=== PATIENT | female | born 1960 | race Caucasian/White ===

== ENCOUNTER 2016-09-16 23:56 | Emergency (ER) | payer OTHER ==
[~2016-09-16] VITALS: Ht 157.5 cm; Wt 49.9 kg
--- NOTE | 2016-09-17 01:35 | NUR ---
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 NO SOB NOTED. NAD NOTED. NO NVD AT THIS TIME. PT GOWNED AND PLACED ON MONITOR WAITING FOR MD DARLING.
--- NOTE | 2016-09-17 02:46 | NUR ---
XRAY AT BEDSIDE
--- NOTE | 2016-09-17 04:06 | NUR ---
Patient is resting comfortably in bed with eyes closed. Easily aroused. VSS
--- NOTE | 2016-09-17 06:36 | NUR ---
ASSUMED D/C CARE ONLY AT THIS TIME ON BEHALF OF PRIMARY NURSE BARRY. Patient discharged to home in stable condition. Written and verbal after care instructions given. Patient verbalizes understanding of instruction.
[2016-09-17 06:37] VITALS: BP 101/66
== END 2016-09-17 06:38 | disposition home or self-care (01) ==
LOC: ER 09-17 00:02
DX: G89.29 Other chronic pain (principal); M54.32 Sciatica, left side; M19.90 Unspecified osteoarthritis, unspecified site
CPT/HCPCS: 73510-TC; A4606; Z7610

== ENCOUNTER 2021-08-12 21:49 | Emergency (ER) | payer OTHER ==
[~2021-08-12] VITALS: Ht 157.5 cm; Wt 49.9 kg
[2021-08-12] MEDS ORDERED: MORPHINE SULFATE INJ 2 MG/ML DISP.SYRIN IV ONE (23:00)
[2021-08-12] MEDS ORDERED: ONDANSETRON HCL/PF 4 MG/2 ML VIAL IVP ONE (23:00)
[2021-08-12] MEDS ORDERED: MORPHINE SULFATE INJ 2 MG/ML DISP.SYRIN ONE (23:10)
[2021-08-12] MEDS ORDERED: ONDANSETRON HCL/PF 4 MG/2 ML VIAL ONE (23:10)
[2021-08-12 23:31] LABS: BASOPHILS % (AUTO) 0.4 % (0.0-2.0); EOSINOPHILS % (AUTO) 1.8 % (0.0-6.0); HEMATOCRIT 38 % (33-45); HEMOGLOBIN 12.7 g/dL (11.5-14.8); LYMPHOCYTES % (AUTO) 40.1 % (20.0-44.0); MEAN CORPUSCULAR HGB CONC 33 g/dl (31.0-36.0); MEAN CORPUSCULAR VOLUME 93 fL (82-100); MONOCYTES # (AUTO) 0.5 K/uL (0.1-1.30); MONOCYTES % (AUTO) 7.1 % (2.0-12.0); NEUTROPHILS # (AUTO) 3.8 K/uL (1.8-8.9); NEUTROPHILS % (AUTO) 50.6 % (43.0-81.0); PLATELET COUNT (AUTO) 195 K/uL (150-450); RED BLOOD CELL COUNT(AUTO) 4.11 MIL/uL (4.0-5.2); WHITE BLOOD COUNT (AUTO) 7.5 K/uL (4.3-11.0)
[2021-08-12 23:54] LABS: ALBUMIN 3.6 g/dL (3.4-5.0); BILIRUBIN,DIRECT 0.1 mg/dL (0.0-0.2); BILIRUBIN,TOTAL 0.3 mg/dL (0.2-1.0); CALCIUM, SERUM 8.6 mg/dL (8.5-10.1); CREATININE 0.5 mg/dL (0.6-1.3); POTASSIUM 3.5 mmol/L (3.5-5.1); TOTAL PROTEIN, SERUM 6.7 g/dL (6.4-8.2)
[2021-08-12] MEDS ORDERED: IOHEXOL-300 100 ML VIAL IV ONE (23:54)
[2021-08-12] MEDS ORDERED: IV NS 0.9% 250 ML IV ONE (23:54)
[2021-08-13] MEDS ORDERED: DOCU-141 PO (01:15)
[2021-08-13] MEDS ORDERED: DICY10CA13 PO (01:15)
--- NOTE | 2021-08-13 01:39 | NUR ---
Patient discharged to home in stable condition. Written and verbal after care instructions given. Patient verbalizes understanding of instruction.
[2021-08-13 01:40] VITALS: BP 121/66
== END 2021-08-13 01:40 | disposition home or self-care (01) ==
LOC: ER 21:50
DX: K59.00 Constipation, unspecified (principal); R10.12 Left upper quadrant pain; R10.32 Left lower quadrant pain; F17.200 Nicotine dependence, unspecified, uncomplicated; Z60.2 Problems related to living alone
CPT/HCPCS: 36415; 74177; 80048; 80076; 83690; 85025; 85730; 96374; 96375; 99285; J2270; J2405; J7050; Q9967

== ENCOUNTER 2022-06-29 20:03 | Emergency (ER) | payer OTHER ==
[~2022-06-29] VITALS: Ht 157.5 cm; Wt 49.9 kg
[~2022-06-29 20:03] MED LIST: DICY10CA13 PO; DOCU-141 PO
--- NOTE | 2022-06-29 20:10 | NUR ---
PT AOX4 [address] FOR C/O DIZZINESS AND PAIN. PLACED IN BED 11 ON MONITOR AND PULSE OX. AT BEDSIDE FOR EVAL. AWAITING FURTHER ORDERS.
--- NOTE | 2022-06-29 20:29 | NUR ---
AT BEDSIDE FOR EVAL.
[2022-06-29] MEDS ORDERED: DIAZEPAM 5 MG TABLET ONE (20:42)
[2022-06-29] MEDS ORDERED: DIAZEPAM 5 MG TABLET PO ONE (21:00)
[2022-06-29] MEDS ORDERED: IV NS 0.9% 1,000 ML IV ONE (21:00)
[2022-06-29 21:17] LABS: BASOPHILS % (AUTO) 0.2 % (0.0-2.0); EOSINOPHILS % (AUTO) 1.2 % (0.0-6.0); HEMATOCRIT 38 % (33-45); HEMOGLOBIN 12.8 g/dL (11.5-14.8); LYMPHOCYTES # (AUTO) 3.3 K/uL (0.8-4.8); LYMPHOCYTES % (AUTO) 37.5 % (20.0-44.0); MEAN CORPUSCULAR HGB CONC 33 g/dl (31.0-36.0); MEAN CORPUSCULAR VOLUME 93 fL (82-100); MONOCYTES # (AUTO) 0.5 K/uL (0.1-1.30); MONOCYTES % (AUTO) 5.1 % (2.0-12.0); PLATELET COUNT (AUTO) 269 K/uL (150-450); RED BLOOD CELL COUNT(AUTO) 4.15 MIL/uL (4.0-5.2); WHITE BLOOD COUNT (AUTO) 8.9 K/uL (4.3-11.0)
[2022-06-29 21:33] LABS: CALCIUM, SERUM 8.8 mg/dL (8.5-10.1); CARBON DIOXIDE 23 mmol/L (21-32); CHLORIDE 108 mmol/L (98-107); CREATININE 0.6 mg/dL (0.6-1.3); GLUCOSE 97 mg/dL (74-106); POTASSIUM 3.5 mmol/L (3.5-5.1); SODIUM SERUM 143 mmol/L (136-145); UREA NITROGEN, BLOOD 17 mg/dL (7-18)
[2022-06-29] MEDS ORDERED: IOHEXOL-350 100 ML VIAL IV ONE (23:26)
[2022-06-29] MEDS ORDERED: CT SWABBABLE VALVE TRANS SET 1 EA INFUS.SET MC ONE (23:26)
[2022-06-29] MEDS ORDERED: IV NS 0.9% 250 ML IV ONE (23:26)
--- NOTE | 2022-06-30 08:09 | NUR ---
[id number] #[phone], ASK FOR CHARGE NURSE
--- NOTE | 2022-06-30 08:13 | NUR ---
PER DEC, VERBAL AUTH FOR TRANSPORTATION: [id number]. CALL [facility]. ACCEPTING DR IS DR. KAISER
--- NOTE | 2022-06-30 08:26 | NUR ---
TRANSPORTATION SET UP WITH [facility]. ETA IS [id number].
--- NOTE | 2022-06-30 08:49 | NUR ---
REPORT GIVEN TO JUSTINE STONER AT [facility] FOR CONTINUITY OF CARE.
--- NOTE | 2022-06-30 08:55 | NUR ---
[facility]IX ADMINISTRATOR IS NAMED DIA
--- NOTE | 2022-06-30 10:30 | NUR ---
TEST CLERK AT BEDSIDE READY TO TRANSFER HER
--- NOTE | 2022-06-30 10:40 | NUR ---
PATIENT REFUSING TO GO WITH EMT TRANSPORT. SIGNED AMA
--- NOTE | 2022-06-30 10:44 | NUR ---
Patient does not wish to proceed with medical care recommended by Dr. Hansen. Patient given information related to possible complications, up to and including , which could occur as a result of leaving the hospital at this time. Patient verbalizes understanding of risks involved due to leaving against medical advice. Patient has signed AMA form.
[2022-06-30 10:50] VITALS: BP 118/79
== END 2022-06-30 10:50 | disposition left against medical advice (07) ==
LOC: ER 20:05
DX: R42 Dizziness and giddiness (principal); M54.2 Cervicalgia; R07.9 Chest pain, unspecified; Z20.822 Contact with and (suspected) exposure to COVID-19; Z53.29 Procedure and treatment not carried out because of patient's decision for other reasons; R62.7 Adult failure to thrive; M48.02 Spinal stenosis, cervical region
CPT/HCPCS: 99285; 96360; 70498; 71045; 93005; 85025; 80048; 83735; 36415; 84484; 87426; 87081; J7030; J7050; Q9967; C9803